=== PATIENT | female | born 1965 | race Caucasian/White ===

== ENCOUNTER 2017-11-15 12:46 | Emergency (ER) | payer BC, OTHER ==
[~2017-11-15] VITALS: Ht 167.6 cm; Wt 120.0 kg
[2017-11-15 19:21] VITALS: BP 151/88
== END 2017-11-15 19:22 | disposition home or self-care (01) ==
LOC: ER 12:46
DX: S93.492A Sprain of other ligament of left ankle, initial encounter (principal); I10 Essential (primary) hypertension; M79.7 Fibromyalgia; M54.5 Low back pain; V00.811A Fall from moving wheelchair (powered), initial encounter; Y93.89 Activity, other specified; Y92.89 Other specified places as the place of occurrence of the external cause; Y99.8 Other external cause status
CPT/HCPCS: 73610; 99284; Z7610